=== PATIENT | female | born 1955 | race Caucasian/White ===

== ENCOUNTER → 2018-09-16 | Outpatient (CLI) | payer OTHER ==
[~2018-09-16] MED LIST: REGADENOSON 0.4 MG/5 ML DISP.SYRIN. IV ONE
--- NOTE | 2018-09-16 09:58 | CARD ---
MR#: [id number] Date of Study: 09/16/2018 Ordering Physician: KRISTAL BELTRAN, Referring Physician: KRISTAL BELTRAN Tech: Jasmyne Van RDCS APPROVED REPORT EXAM: Two-dimensional and M-mode echocardiogram with Doppler and color Doppler. Other Information Quality : Good INDICATION Chest Pain 2D DIMENSIONS RVDd3.0 (2.9-3.5cm)Left Atrium(2D)4.0 (1.6-4.0cm) IVSd0.9 (0.7-1.1cm)Aortic Root(2D)2.8 (2.0-3.7cm) LVDd5.3 (3.9-5.9cm)LVOT Diameter2.0 (1.8-2.4cm) PWd0.9 (0.7-1.1cm)LVDs3.2 (2.5-4.0cm) FS (%) 30.0 %SV91.5 ml LVEF(%)60.0 (>50%) Aortic Valve AoV Peak Matt.131.5cm/sAoV VTI31.5cm AO Peak GR.6.9mmHgLVOT Peak Matt.108.6cm/s AO Mean GR.4mmHgAVA (VMAX)2.63cm2 RANJIT (VTI)3.00cm2 Mitral Valve MV E Gumvifzi08.7cm/sMV DECEL QWAJ832cz MV A Fchkjjus453.1cm/sE/A Ratio0.8 Tricuspid Valve TR P. Vvuwhtdo293sv/sRAP QILTSNCD4xmJj TR Peak Gr.41aoDpXFAL74hvYr Pulmonary Vein S1 Nrepujij57.9cm/sD2 Koulhrby83.5cm/s LEFT VENTRICLE The left ventricle is normal size. There is normal left ventricular wall thickness. The left ventricu lar systolic function is normal and the ejection fraction is within normal range. The Ejection Fracti on is 55-60%. There is normal LV segmental wall motion. Transmitral Doppler flow pattern is Grade I-a bnormal relaxation pattern. RIGHT VENTRICLE The right ventricle is normal size. The right ventricular systolic function is normal. ATRIA The left atrium size is normal. The right atrium size is normal. The interatrial septum is intact wit h no evidence for an atrial septal defect or patent foramen ovale as noted on 2-D or Doppler imaging. AORTIC VALVE The aortic valve is calcified but opens well. Doppler and Color Flow revealed no significant aortic r egurgitation. There is no significant aortic valvular stenosis. MITRAL VALVE The mitral valve is normal in structure and function. There is no evidence of mitral valve prolapse. There is no mitral valve stenosis. Doppler and Color-flow revealed trace to mild mitral regurgitation . TRICUSPID VALVE The tricuspid valve is normal in structure and function. Doppler and Color Flow revealed trace tricus pid regurgitation. The PA pressure was estimated at 24 mmHg. There is no tricuspid valve stenosis. PULMONIC VALVE The pulmonic valve is not well visualized. Doppler and Color Flow revealed mild pulmonic valvular reg urgitation. There is no pulmonic valvular stenosis. GREAT VESSELS The aortic root is normal in size. The ascending aorta is mildly dilated at 3.5 cm. The IVC is normal in size and collapses >50% with inspiration. PERICARDIAL EFFUSION There is no evidence of significant pericardial effusion. Critical Notification Critical Value: No <Conclusion> The left ventricle is normal size. The left ventricular systolic function is normal and the ejection fraction is within normal range. The Ejection Fraction is 55-60%. There is no significant aortic valvular stenosis. Doppler and Color Flow revealed no significant aortic regurgitation. Doppler and Color-flow revealed trace to mild mitral regurgitation. Doppler and Color Flow revealed trace tricuspid regurgitation. The PA pressure was estimated at 24 mmHg. The ascending aorta is mildly dilated at 3.5 cm. Signed by : Sharif Browning MD Electronically Approved : 09/16/2018 09:57:54
--- NOTE | 2018-09-16 11:57 | RAD ---
MR#: [id number] Date of Study: 09/16/2018 Ordering Physician: KRISTAL BELTRAN Referring Physician: SIA SILVA Tech: PACO Napier, ARRT (R) (N) APPROVED REPORT Test Type: Pharmacological Stress Nurse/Tech: Endy Cheema RN Test Indications: chest pain Cardiac History: No known cardiac Medications: See Electronic Medical Record Medical History: See Electronic Medical Record Resting ECG: SB Resting Heart Rate: 48 bpm Resting Blood Pressure: 142/68mmHg Pretest Chest Pain: None Nurse/Tech Notes Lungs CTA, S1S2 Consent: The procedure was explained to the patient in lay terms. Informed consent was witnessed. Edin eout was entered into [employer]. History and Stress Test performed by CARISSA Godoy Pharm. Details Pharmacologic stress testing was performed using 0.4mg per 5ml of regadenoson given intravenously ove r 7-10 seconds. Stress Symptoms nausea, no chest pain POST EXERCISE Reason for Termination: Infusion complete Max HR: 94 bpm Max Blood Pressure: 142/64mmHg Blood Pressure response to exercise: Normal blood pressure response during stress. Heart Rate response to exercise: normal response Chest Pain: No. Arrhythmia: No. ST Change: No. INTERPRETATION Stress EKG Conclusion: NSR. No acute ischemic findings. Imaging Protocol IMAGE PROTOCOL: Rest Tc-99m/stress Tc-99m 1 day Rest: Stress: Viability: Radiopharm.Tc99m FixqmjhypAm99s Sestamibi Dose12.2mCi 32mCi Img Date 09/16/2018 09/16/2018 Inj-Img Lblz96szf. 60min. Rest Admin Site:IV - Right AntecubitalAdministrator:RT [place] (R)(N) Stress Admin Site: IV - Right AntecubitalAdministrator: FALLON Caal STRESS DATA End Diast. Vol.70.0mlAv. Heart Rate61.0bpm End Syst. Vol.16.0mlCO Index BSA0.0L/min Myocardial Xdkb938.0gEject. Qdpibqpx45.0% Stress Rates Pk. Fill Rate3.00EDV/secLVtime Pk. Fill 212.46msec Pk. Empty Rate4.06ESV/secLVtime Pk. Xqddg535.69msec 1/3 Pk. Fill1.40EDV/sec Stress Scores Regional WT0.00Summed WT0.00 Regional WM0.00Summed WM2.00 The rest and stress images show normal perfusion, normal contraction and thickening. LV Perf. Quant 17 Seg. SSS1.00 17 Seg. SRS0.00 17 Seg. SDS1.00 Stress Defect Extent (% LAD)0.00Rest Defect Extent (% LAD)0.00Rev. Defect Extent (% LAD)0.00 Stress Defect Extent (% LCX) 5.00Rest Defect Extent (% LCX)0.00Rev. Defect Extent (% LCX)2.50 Stress Defect Extent (% RCA)0.00Rest Defect Extent (% RCA)0.00Rev. Defect Extent (% RCA)0.00 Stress Defect Extent (% ZAID)0.90Rest Defect Extent (% ZAID)0.00Rev. Defect Extent (% ZAID)0.40 Other Information Quality:Good Risk Assessment: Low Risk Conclusion 1. No evidence of stress induced EKG changes. 2. Normal perfusion at stress/rest 3. Normal EF at > 65% 4. Low risk study Signed by : Forrest Ventura, Electronically Approved : 09/16/2018 11:56:29
== END | disposition home or self-care (01) ==
LOC: ECHO 07:44
PROVIDERS: ATTEND Internal Medicine Cardiovascular Disease
DX: I34.0 Nonrheumatic mitral (valve) insufficiency (principal)
CPT/HCPCS: 78452; 93017; 93306; 96374; 96375; 96376; A9500; J2785